=== PATIENT | female | born 1995 ===

== ENCOUNTER 2021-10-02 10:41 | Inpatient (IN) | payer SELFPAY ==
[2021-10-02] MEDS ORDERED: LACTATED RINGERS 1,000 ML ONE (11:20)
[2021-10-02] MEDS ORDERED: LOPERAMIDE 2 MG CAP PO PRN (11:37)
[2021-10-02] MEDS ORDERED: BUTORPHANOL 2 MG/1 ML INJ IV PRN (11:37)
[2021-10-02] MEDS ORDERED: MINERAL OIL 30 ML ORAL LIQD PO PRN (11:37)
[2021-10-02] MEDS ORDERED: METHYLERGONOVINE MALEATE 0.2 MG/ML VIAL IM PRN (11:37)
[2021-10-02] MEDS ORDERED: TERBUTALINE 1 MG/1 ML INJ SUB-Q PRN (11:37)
[2021-10-02] MEDS ORDERED: OXYTOCIN 10 UNIT/1 ML INJ IM PRN (11:37)
[2021-10-02] MEDS ORDERED: ePHEDrine SULFATE 50 MG/1 ML INJ IV PRN (11:37)
[2021-10-02] MEDS ORDERED: fentaNYL 100 MCG/2 ML INJ IV PRN (11:37)
[2021-10-02] MEDS ORDERED: LIDOCAINE (2%) 20 MG/1 ML VIAL 20 ML MDV INFILTRATI ONE (11:37)
[2021-10-02] MEDS ORDERED: ACETAMINOPHEN 325 MG TAB PO PRN ×2 (11:37→14:00)
[2021-10-02] MEDS ORDERED: miSOPROStol 200 MCG TAB PR PRN (11:37)
[2021-10-02] MEDS ORDERED: CARBOPROST TROMETHAMINE 250 MCG/1 ML INJ IM PRN (11:37)
[2021-10-02] MEDS ORDERED: LACTATED RINGERS 1,000 ML IV SCH (11:45)
[2021-10-02 11:47] LABS: Hematocrit 32.1 % (30.3-42.9); Hemoglobin 10.2 gm/dl (10.1-14.3); Mean Corpuscular HGB Conc 32 % (30-34); Platelet Count 137 K/mm3 (140-440); Red Blood Count 4.63 M/mm3 (3.65-5.03); Red Cell Distribution Width 18.7 % (13.2-15.2)
[2021-10-02 11:51] LABS: Mean Corpuscular Volume 69 fl (79-97)
[2021-10-02] MEDS ORDERED: OXYTOCIN DRIP 30 UNITS/500 ML BAG IV SCH ×3 (12:00→14:00)
--- NOTE | 2021-10-02 12:03 | History and Physical Report ---
History of Present Illness Date of examination: 10/02/21 Date of admission: 10/02/21 Chief complaint: labor History of present illness: @40.2wks gestation LISETTE 09/30 Past History Past Medical History: no pertinent history Past Surgical History: no surgical history Family/Genetic History: none Social history: no significant social history, - Obstetrical History Expected Date of Delivery: 09/30/21 Actual Gestation: 40 Week(s) 2 Day(s) : 4 Para: 2 Hx # Term Pregnancies: 2 Number of Pregnancies: 0 Spontaneous Abortions: 1 Induced : 0 Number of Living Children: 2 #1 Infant Gender: Female year: , Birthweight: 7 lb Method of Delivery: Vaginal Gestational age at delivery: 40 Complications: none #2 year: ,018 Gestational age at delivery: 5 Complications: other (SAB) #3 Infant Gender: Female year: , Birthweight: 6 lb Method of Delivery: Vaginal Gestational age at delivery: 40 Complications: none Medications and Allergies Allergies Allergy/AdvReac Type Severity Reaction Status Date / Time No Known Allergies Allergy Unverified 10/02/21 11:37 Home Medications Medication Instructions Recorded Confirmed Last Taken Type No Known Home Medications [No 10/02/21 10/02/21 Unknown History Reported Home Medications] Active Meds: Active Medications Acetaminophen (Acetaminophen 325 Mg Tab) 650 mg PO Q4H PRN PRN Reason: Pain, Mild (1-3) Butorphanol Tartrate (Butorphanol 2 Mg/1 Ml Inj) 1 mg IV Q2H PRN PRN Reason: Pain, Moderate(4-6) LABOR PAIN Carboprost Tromethamine (Carboprost Tromethamine 250 Mcg/1 Ml Inj) 250 mcg IM ONCE PRN PRN Reason: Uterine Bleeding Ephedrine Sulfate (Ephedrine Sulfate 50 Mg/1 Ml Inj) 10 mg IV Q2M PRN PRN Reason: Hypotension Fentanyl (Fentanyl 100 Mcg/2 Ml Inj) 100 mcg IV Q2H PRN PRN Reason: Pain,Severe (7-10) LABOR PAIN Oxytocin/Sodium Chloride (Pitocin/Ns 30 Unit/500ml) 30 units in 500 mls @ 2 mls/hr IV TITR CHLOE; Protocol Lactated Ringer's (Lactated Ringers) 1,000 mls @ 125 mls/hr IV DIRECT CHLOE Oxytocin/Sodium Chloride (Pitocin/Ns 30 Unit/500ml) 30 units in 500 mls @ 40 mls/hr IV TITR CHLOE; Protocol Loperamide HCl (Loperamide 2 Mg Cap) 2 mg PO ONCE PRN PRN Reason: give with Hemabate Methylergonovine Maleate (Methylergonovine Maleate 0.2 Mg/Ml Vial) 0.2 mg IM ONCE PRN PRN Reason: Uterine Bleeding Mineral Oil (Mineral Oil 30 Ml Oral Liqd) 30 ml PO QHS PRN PRN Reason: Constipation Misoprostol (Misoprostol 200 Mcg Tab) 800 mcg [place] ONCE PRN PRN Reason: Uterine Bleeding Oxytocin (Oxytocin 10 Unit/1 Ml Inj) 10 unit IM ONCE PRN PRN Reason: Uterine Bleeding Terbutaline Sulfate (Terbutaline 1 Mg/1 Ml Inj) 0.25 mg SUB-Q ONCE PRN PRN Reason: Hyperstimulation/Hypertonicity Review of Systems All systems: negative Genitourinary: contractions - Vital Signs Vital signs: Vital Signs Pulse BP 89 121/75 10/02/21 11:02 10/02/21 11:02 Temp Pulse Resp BP Pulse Ox 97.8 F 74 121/75 100 10/02/21 11:30 10/02/21 11:57 10/02/21 11:48 10/02/21 11:57 - Physical Exam Breasts: Positive: deferred Cardiovascular: Regular rate Lungs: Positive: Clear to auscultation Abdomen: Positive: normal appearance Genitourinary (Female): Positive: normal external genitalia Vulva: both: normal Vagina: Positive: normal moisture Cervix: Positive: other (DILATED) Uterus: Positive: enlarged (GRAVID) Anus/Rectum: Positive: normal perianal skin Extremities: Positive: normal Deep Tendon Reflex Grade: Normal +2 - Obstetrical FHR: category 2 FHR comments: EARLIES Uterine Contraction Monitor Mode: External Cervical Dilatation: 9 Cervical Effacement Percentage: 90 station: -2 Uterine Contraction Frequency (min): 2-3 Uterine Contraction Duration: FIRM Uterine Contraction Pattern: Regular Uterine Contraction Intensity: Strong/Firm (AROM CLEAR AT TIME OF EXAM 1150AM) Results Result Diagrams: 10/02/21 11:15 Abnormal lab results 10/02/21 Range/Units 11:15 WBC 11.1 H (4.5-11.0) K/mm3 MCV 69 L (79-97) fl MCH 22 L (28-32) pg RDW 18.7 H (13.2-15.2) % Plt Count 137 L (140-440) K/mm3 All other labs normal. Assessment and Plan A: CENTRO OF GA PATIEN @ 40.2 WKS, LISETTE 09/30/21 LABOR CONTRACTIONS VE -2 BBW GBS NEG, O-POS P: TOCO/EFM MONITORING AROM FOR AUGMENTATION OF LABOR ANTICIPATE DELV
--- NOTE | 2021-10-02 13:36 | Procedure Note ---
OB Delivery Note - Delivery Date of Delivery: 10/02/21 Surgeon: MAKENZIE PATTERSON Hvac Designer: WANDA BOBBY Estimated blood loss: other (400ML) - Vaginal Delivery presentation: vertex (JHON) Delivery position: OA Intrapartum events: none Delivery induction: AROM (CLEAR AT 1150) Delivery augmentation: rupture of membranes Delivery monitor: external FHT, external uterine Route of delivery: Delivery placenta: spontaneous (INTACT AT 1257) Episiotomy: none Delivery laceration: 2nd degree (MIDLINE PERINEAL) Delivery repair: vicryl (3.0) Anesthesia: local (2%LIDOCAINE), intravenous (100MCG FENTANYL IVP POST DELV) Delivery comments: of viable baby boy 10/02/21 @1252, over intact perineum without medication or epidural. Infant was place on mothers abdomen, spontaneous cry of with terminal meconium present. Delayed cord clamping x1 min. Cord cut by FOB. 8/9. Spontaneous delivery of intact placenta at 1257. FFM below uterus. Cord blood collected. Placenta discarded. - Infant A at 1 minute: 8 at 5 minutes: 9 Infant Gender: Male (@1252)
[2021-10-02] MEDS ORDERED: diphenhydrAMINE 25 MG CAP PO PRN (13:37)
[2021-10-02] MEDS ORDERED: PROMETHAZINE 25 MG RECT SUPP PR PRN (13:37)
[2021-10-02] MEDS ORDERED: BENZOCAINE/MENTHOL 20/0.5% TOP SPRAY 56 GM TP PRN (13:37)
[2021-10-02] MEDS ORDERED: MAGNESIUM HYDROXIDE (MOM) ORAL LIQD UDC PO PRN (13:37)
[2021-10-02] MEDS ORDERED: LANOLIN/ZINC/DIMETHICONE (LANSINOH) 7 GM TP PRN ×2 (13:37)
[2021-10-02] MEDS ORDERED: HYDROcodone/ACETAMINOPHEN 5-325 MG TAB PO PRN (13:37)
[2021-10-02] MEDS ORDERED: SENNOSIDES/DOCUSATE SODIUM 8.6/50 MG TAB PO SCH (14:00)
[2021-10-02] MEDS ORDERED: PROMETHAZINE 25 MG TAB PO PRN (14:00)
[2021-10-02] MEDS ORDERED: ONDANSETRON 4 MG/2 ML INJ IV PRN (14:00)
[2021-10-02] MEDS ORDERED: WITCH HAZEL/ GLYCERIN PAD TP PRN (14:00)
[2021-10-02] MEDS: IBUPROFEN 600 MG TAB PO SCH (20:01)
[2021-10-02] MEDS: DOCUSATE SODIUM 100 MG CAP PO SCH (21:51)
[2021-10-02] MEDS: FERROUS SULFATE 325 MG TAB PO SCH (21:51)
[2021-10-03 01:16] LABS: Hemoglobin 8.4 gm/dl (10.1-14.3)
[2021-10-03] MEDS: IBUPROFEN 600 MG TAB PO SCH ×2 (04:07→10:14)
--- NOTE | 2021-10-03 08:50 | Progress Note ---
Assessment and Plan A: PPD # 1 - stable P: Discharge home today Discharge instructions given Subjective - Subjective Date of service: 10/03/21 Principal diagnosis: - PPD # 1 Patient reports: appetite normal Theresa: doing well Objective - Vital Signs Latest vital signs: Vital Signs Temp Pulse Resp BP Pulse Ox Pulse Ox 10/03/21 08:05 98 10/03/21 07:47 98.2 F 78 18 102/66 99 10/03/21 04:07 18 10/03/21 01:45 97.9 F 66 18 103/53 98 10/02/21 21:02 98.5 F 62 18 105/55 98 10/02/21 20:01 18 10/02/21 20:00 99 10/02/21 16:45 97.7 F 73 16 108/55 98 98 10/02/21 15:03 72 106/61 10/02/21 15:01 70 100 10/02/21 14:57 66 111/63 10/02/21 14:56 66 100 10/02/21 14:51 78 100 10/02/21 14:46 76 99 10/02/21 14:42 76 107/57 10/02/21 14:41 71 100 10/02/21 14:36 74 100 10/02/21 14:31 85 100 10/02/21 14:27 81 110/56 10/02/21 14:26 85 100 10/02/21 14:21 81 99 10/02/21 14:16 78 100 10/02/21 14:12 67 108/57 10/02/21 14:11 70 100 10/02/21 14:06 73 100 10/02/21 14:01 76 100 10/02/21 13:57 81 112/71 10/02/21 13:56 74 100 10/02/21 13:51 78 100 10/02/21 13:46 92 H 100 10/02/21 13:42 83 106/73 10/02/21 13:41 91 H 99 10/02/21 13:36 94 H 99 10/02/21 13:31 83 100 10/02/21 13:28 86 109/80 10/02/21 13:26 78 100 10/02/21 13:21 90 100 10/02/21 13:16 87 100 10/02/21 13:15 98.0 F 10/02/21 13:11 87 99 10/02/21 13:07 16 10/02/21 12:59 73 L 10/02/21 12:53 76 88 10/02/21 12:37 94 H 100 10/02/21 12:32 92 H 100 10/02/21 12:27 81 100 10/02/21 12:22 84 100 10/02/21 12:17 65 100 10/02/21 12:12 80 100 10/02/21 12:07 77 99 10/02/21 12:02 85 99 10/02/21 11:57 74 100 10/02/21 11:52 72 100 10/02/21 11:48 85 121/75 10/02/21 11:47 94 H 97 10/02/21 11:30 97.8 F 10/02/21 11:02 89 121/75 Intake and Output 10/02/21 10/03/21 10/03/21 22:59 06:59 14:59 Intake Total 240 480 120 Output Total 300 Balance -60 480 120 Intake: Oral 120 Intake, Free Water 240 480 Output: Urine 300 Void 300 Other: Total, Intake Amount 120 Total, Output Amount 300 # Voids Void 1 2 1 - Exam Breasts: Present: deferred Cardiovascular: Present: Regular rate Lungs: Present: Clear to auscultation Abdomen: Present: soft Vulva: both: normal Uterus: Present: fundal height below umbilicus Deep Tendon Reflex Grade: Normal +2 - Labs Labs: Abnormal lab results 10/02/21 10/03/21 Range/Units 11:15 00:49 WBC 11.1 H (4.5-11.0) K/mm3 Hgb 8.4 L (10.1-14.3) gm/dl Hct 26.0 L D (30.3-42.9) % MCV 69 L (79-97) fl MCH 22 L (28-32) pg RDW 18.7 H (13.2-15.2) % Plt Count 137 L (140-440) K/mm3
--- NOTE | 2021-10-03 08:50 | Discharge Summary ---
Providers - Providers Date of Admission: 10/02/21 11:37 Date of discharge: 10/03/21 Attending physician: BELEN MAST Primary care physician: BELEN MAST Hospitalization Reason for admission: active labor Delivery: Laceration: 2nd degree Other procedures: none complications: none Discharge diagnosis: IUP at term delivered baby: male Condition at discharge: Good Disposition: 01 HOME / SELF CARE / HOMELESS Plan - Provider Discharge Summary Activity: routine, no sex for 6 weeks, no strenuous exercise Diet: routine Instructions: routine Additional instructions: [] Smoking cessation referral if applicable(refer to patient education folder for contact #) [] Refer to [facility] Booklet Call your doctor immediately for: * Fever > 100.5 * Heavy vaginal bleeding ( >1 pad per hour) * Severe persistent headache * Shortness of breath * Reddened, hot, painful area to leg or breast * Drainage or odor from incision. * Keep incision clean and dry at all times and follow doctor's instructions regarding bathing/showering - Follow up plan Follow up: BELEN MAST MD [Primary Care Provider] - 6 Weeks
[2021-10-03] MEDS: FERROUS SULFATE 325 MG TAB PO SCH (10:13)
[2021-10-03] MEDS: DOCUSATE SODIUM 100 MG CAP PO SCH (10:13)
[2021-10-03] MEDS ORDERED: BUTORPHANOL 2 MG/1 ML INJ IV PRN (12:55)
[2021-10-03] MEDS ORDERED: ACETAMINOPHEN 325 MG TAB PO PRN (12:55)
[2021-10-03 16:48] VITALS: BP 102/60
== END 2021-10-03 19:00 | disposition home or self-care (01) | DRG 807 ==
LOC: TRG 10:41 → APU 10:45 → LD 11:33 → TRG 11:56 → OB 16:38
PROVIDERS: ADMIT Obstetrics & Gynecology; ATTEND Obstetrics & Gynecology
PROC: 10E0XZZ Delivery of Products of Conception, External Approach (ICD-10-PCS; principal; 2021-10-02)
PROC: 0KQM0ZZ Repair Perineum Muscle, Open Approach (ICD-10-PCS; 2021-10-02)
PROC: 10907ZC Drainage of Amniotic Fluid, Therapeutic from Products of Conception, Via Natural or Artificial Opening (ICD-10-PCS; 2021-10-02)
DX: O48.0 Post-term pregnancy (principal); Z37.0 Single live birth; O77.0 Labor and delivery complicated by meconium in amniotic fluid; O70.1 Second degree perineal laceration during delivery; Z3A.40 40 weeks gestation of pregnancy; Z20.822 Contact with and (suspected) exposure to COVID-19
CPT/HCPCS: 36415; 85014; 85018; 85027; 86850; 86900; 86901; G0378; J3490; J2590; J3010; J7120; U0003